=== PATIENT | male | born 1955 | race American Indian/Alaskan Native ===

== ENCOUNTER 2017-08-11 14:47 | Emergency (ER) | payer OTHER ==
[2017-08-11] MEDS ORDERED: MOTRIN PO ONE (16:33)
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
[2017-08-11 18:44] VITALS: BP 132/83
== END 2017-08-11 18:56 | disposition home or self-care (01) ==
LOC: ED 14:47
DX: S02.5XXA Fracture of tooth (traumatic), initial encounter for closed fracture (principal); S16.1XXA Strain of muscle, fascia and tendon at neck level, initial encounter; Z85.118 Personal history of other malignant neoplasm of bronchus and lung; V49.49XA Driver injured in collision with other motor vehicles in traffic accident, initial encounter; Y93.89 Activity, other specified; Y92.89 Other specified places as the place of occurrence of the external cause; Y99.8 Other external cause status
CPT/HCPCS: 72040